=== PATIENT | male | born 2000 | race Caucasian/White ===

== ENCOUNTER 2022-08-21 11:38 | Emergency (ER) | payer OTHER ==
[~2022-08-21] VITALS: Ht 172.7 cm; Wt 84.1 kg
[2022-08-21] MEDS ORDERED: PERTUSS(ACELL),DIPH,TET VAC/PF 0.5 ML SYRINGE IM. ONE (12:15)
[2022-08-21] MEDS ORDERED: CEPH-558 PO (12:59)
[2022-08-21] MEDS ORDERED: SULF-261 PO (13:02)
[2022-08-21 13:25] VITALS: BP 122/69
== END 2022-08-21 13:44 | disposition home or self-care (01) ==
LOC: EMS 11:45
DX: S61.402A Unspecified open wound of left hand, initial encounter (principal); F12.90 Cannabis use, unspecified, uncomplicated; W34.010A Accidental discharge of airgun, initial encounter; Y93.89 Activity, other specified; Y92.89 Other specified places as the place of occurrence of the external cause; Y99.8 Other external cause status
CPT/HCPCS: 90471; 90715; 99283